=== PATIENT | female | born 1965 | race Caucasian/White ===

== ENCOUNTER 2018-07-27 00:26 | Emergency (ER) | payer SELFPAY ==
[~2018-07-27] VITALS: Ht 149.9 cm; Wt 59.4 kg
[2018-07-27 00:28] VITALS: BP 189/108
== END 2018-07-27 02:00 | disposition left against medical advice (07) ==
LOC: ER 00:26
DX: R10.9 Unspecified abdominal pain (principal); R11.10 Vomiting, unspecified; Z53.21 Procedure and treatment not carried out due to patient leaving prior to being seen by health care provider